=== PATIENT | male | born 1950 | race African-American/Black ===

== ENCOUNTER 2018-05-28 04:42 | Inpatient (IN) | payer BC, OTHER ==
[2018-05-28] VITALS (7 sets, daily range): BP systolic 98–119; BP diastolic 50–70
[~2018-05-28] VITALS: Ht 172.7 cm; Wt 81.6 kg
[2018-05-28] MEDS ORDERED: NITROGLYCERIN OINT 1GM/INCH UDPKT TD ONE (05:00)
[2018-05-28] MEDS ORDERED: FUROSEMIDE 40MG/4ML VIAL IV ONE (05:00)
[2018-05-28] MEDS ORDERED: ONDANSETRON HCL 4MG/2ML INJ IV STA (05:00)
[2018-05-28 05:22] LABS: BASOPHILS % 0.4 % (0.0-2.0); EOSINOPHILS % 2.6 % (0.0-5.0); HEMATOCRIT. 30.2 % (42.0-52.0); HEMOGLOBIN. 9.5 g/dL (14.0-18.0); LYMPHOCYTES % 25.8 % (20.0-50.0); MEAN CORPUSCULAR HEMOGLOBIN 27.4 pg (28.0-32.0); MEAN CORPUSCULAR VOLUME 86.6 fL (80.0-94.0); MEAN PLATELET VOLUME 8.4 fl (7.4-10.4); MONOCYTES % 6.9 % (2.0-8.0); NEUTROPHILS % 64.3 % (40.0-76.0); PLATELET 206 x1000/uL (130-400); RED BLOOD CELL COUNT 3.48 mill/uL (4.7-6.1); RED CELL DISTRIBUTION WIDTH 16.7 % (11.6-14.6)
[2018-05-28 05:28] LABS: CHLORIDE 108 mEq/L (98-107)
[2018-05-28] MEDS ORDERED: CEFTRIAXONE 1 G PREMIX 50 ML IV ONE (06:15)
[2018-05-28] MEDS ORDERED: AZITHROMYCIN 500 MG in DEXT 5% WATER 250 ML IV ONE (06:15)
[2018-05-28] MEDS ORDERED: DOCUSATE SODIUM 100MG CAPSULE PO PRN (09:00)
[2018-05-28] MEDS ORDERED: ACETAMINOPHEN 325MG TABLET PO PRN (09:00)
[2018-05-28] MEDS ORDERED: DEXTROSE 50% WATER 50ML SYRINGE IV PRN ×2 (09:00)
[2018-05-28] MEDS ORDERED: IPRATROPIUM/ALBUTEROL 0.5-3(2.5)MG/3ML NEB INH PRN (09:00)
[2018-05-28] MEDS ORDERED: MAGNESIUM/ALUMINUM HYDROXIDE/SIMETHICONE 30ML UDC PO PRN (09:00)
[2018-05-28] MEDS ORDERED: GUAIFENESIN 200MG/10ML SUGAR FREE UDC PO PRN (09:00)
[2018-05-28] MEDS ORDERED: CLONIDINE 0.1MG TABLET PO PRN (09:00)
[2018-05-28 09:31] LABS: BG BASE EXCESS -2.9 mmol/L (-2.0-2.0); BG BILEVEL POS AIRWAY PRESSURE 18/5; BG CARBOXYHEMOGLOBIN 0.3 % (0.5-1.5); BG DEOXYHEMOGLOBIN 0.7 % (0.0-5.0); BG FRACTION INSPIRED OXYGEN 50; BG HCO3 ACT 20.9 mmol/L (22.0-26.0); BG METHEMOGLOBIN 0.4 % (0.0-1.5); BG OXYGEN SATURATION 99.3 % (92.0-98.5); BG OXYHEMOGLOBIN 98.6 % (94.0-97.0); BG PCO2 32.4 mmHg (35.0-45.0); BG PH 7.427 (7.350-7.450); BG PO2 216.8 mmHg (75.0-100.0); BG SAMPLE SITE RIGHT BRACHIAL; BG TOTAL HEMOGLOBIN 9.2 g/dL (12.0-18.0); BG VENT MODE MASK - BIPAP; BG VENT RATE 12 set
[2018-05-28] MEDS ORDERED: ASPI-1158 MT (12:55)
[2018-05-28] MEDS ORDERED: ATOR-2 MT (12:55)
[2018-05-28] MEDS ORDERED: TICA60TA PO (12:55)
[2018-05-28] MEDS ORDERED: COR3 MT (12:55)
[2018-05-28] MEDS ORDERED: NITR0.4T49 SL (12:55)
[2018-05-28] MEDS: BLOOD SUGAR DIAGNOSTIC STRIP TEST SCH ×3 (12:56→20:35)
[2018-05-28] MEDS: INSULIN LISPRO 100 UNITS/ML SUBCUT SCH ×3 (12:56→20:35)
[2018-05-28] MEDS: TICAGRELOR 90 MG TABLET PO SCH ×2 (13:38→18:52)
[2018-05-28] MEDS: PANTOPRAZOLE SODIUM 40 MG/VIAL IV SCH (13:39)
[2018-05-28] MEDS: ASPIRIN 81MG EC TABLET PO SCH (13:39)
[2018-05-28] MEDS ORDERED: IPRATROPIUM/ALBUTEROL 0.5-3(2.5)MG/3ML NEB HHN PRN (17:00)
[2018-05-28] MEDS: IPRATROPIUM/ALBUTEROL 0.5-3(2.5)MG/3ML NEB HHN SCH (20:22)
[2018-05-28] MEDS: CARVEDILOL 3.125 MG TABLET PO SCH (20:35)
[2018-05-28] MEDS: ATORVASTATIN CALCIUM 20MG TABLET PO SCH (20:36)
[2018-05-29] VITALS (12 sets, daily range): BP systolic 95–123; BP diastolic 54–85
[2018-05-29] MEDS: IPRATROPIUM/ALBUTEROL 0.5-3(2.5)MG/3ML NEB HHN SCH ×3 (01:16→20:07)
[2018-05-29] MEDS: BLOOD SUGAR DIAGNOSTIC STRIP TEST SCH ×4 (07:30→21:16)
[2018-05-29] MEDS: INSULIN LISPRO 100 UNITS/ML SUBCUT SCH ×4 (08:00→21:37)
[2018-05-29 08:31] LABS: BASOPHILS % 0.8 % (0.0-2.0); EOSINOPHILS % 4.1 % (0.0-5.0); HEMATOCRIT. 27.3 % (42.0-52.0); HEMOGLOBIN. 8.7 g/dL (14.0-18.0); LYMPHOCYTES % 25.8 % (20.0-50.0); MEAN CORPUSCULAR HEMOGLOBIN 27.4 pg (28.0-32.0); MEAN PLATELET VOLUME 8.6 fl (7.4-10.4); MONOCYTES % 9.1 % (2.0-8.0); NEUTROPHILS % 60.2 % (40.0-76.0); PLATELET 208 x1000/uL (130-400); RED BLOOD CELL COUNT 3.17 mill/uL (4.7-6.1); RED CELL DISTRIBUTION WIDTH 16.7 % (11.6-14.6)
[2018-05-29] MEDS: TICAGRELOR 90 MG TABLET PO SCH ×2 (08:56→17:07)
[2018-05-29] MEDS: ASPIRIN 81MG EC TABLET PO SCH (08:57)
[2018-05-29] MEDS: FUROSEMIDE 40MG/4ML VIAL IV SCH (08:58)
[2018-05-29] MEDS: PANTOPRAZOLE SODIUM 40 MG/VIAL IV SCH (08:58)
[2018-05-29] MEDS: CARVEDILOL 3.125 MG TABLET PO SCH ×2 (08:58→21:00)
[2018-05-29] MEDS: LOSARTAN POTASSIUM 25 MG TABLET PO SCH (08:58)
[2018-05-29 09:45] LABS: PHOSPHORUS 3.1 mg/dL (2.5-4.9)
[2018-05-29 09:48] LABS: T4 FREE 1.13 ng/dL (0.76-1.46)
[2018-05-29] MEDS: LINAGLIPTIN 5MG TABLET PO SCH ×2 (11:15→13:25)
[2018-05-29] MEDS: ATORVASTATIN CALCIUM 20MG TABLET PO SCH (21:15)
[2018-05-30] VITALS (8 sets, daily range): BP systolic 98–134; BP diastolic 44–80
[2018-05-30] MEDS: IPRATROPIUM/ALBUTEROL 0.5-3(2.5)MG/3ML NEB HHN SCH ×3 (02:15→14:56)
[2018-05-30 07:28] LABS: BASOPHILS % 0.7 % (0.0-2.0); EOSINOPHILS % 5.2 % (0.0-5.0); HEMATOCRIT. 26.6 % (42.0-52.0); HEMOGLOBIN. 8.5 g/dL (14.0-18.0); LYMPHOCYTES % 33.7 % (20.0-50.0); MEAN CORPUSCULAR HEMOGLOBIN 27.5 pg (28.0-32.0); MEAN CORPUSCULAR VOLUME 85.6 fL (80.0-94.0); MEAN PLATELET VOLUME 8.2 fl (7.4-10.4); MONOCYTES % 11.5 % (2.0-8.0); NEUTROPHILS % 48.9 % (40.0-76.0); PLATELET 216 x1000/uL (130-400); RED BLOOD CELL COUNT 3.11 mill/uL (4.7-6.1); RED CELL DISTRIBUTION WIDTH 16.2 % (11.6-14.6)
[2018-05-30] MEDS: BLOOD SUGAR DIAGNOSTIC STRIP TEST SCH ×2 (07:30→12:30)
[2018-05-30] MEDS: INSULIN LISPRO 100 UNITS/ML SUBCUT SCH ×2 (08:00→12:30)
[2018-05-30] MEDS: LINAGLIPTIN 5MG TABLET PO SCH (08:20)
[2018-05-30] MEDS: ASPIRIN 81MG EC TABLET PO SCH (08:20)
[2018-05-30] MEDS: FUROSEMIDE 40MG/4ML VIAL IV SCH (08:20)
[2018-05-30] MEDS: TICAGRELOR 90 MG TABLET PO SCH (08:20)
[2018-05-30] MEDS: LOSARTAN POTASSIUM 25 MG TABLET PO SCH (09:00)
[2018-05-30] MEDS: CARVEDILOL 3.125 MG TABLET PO SCH (09:00)
[2018-05-30] MEDS ORDERED: FAMOTIDINE 20MG/2ML VIAL IV SCH (09:00)
== END 2018-05-30 17:15 | disposition home or self-care (01) | DRG 291 ==
LOC: ER 04:53 → 5EST 06:08 → EDBEDREQSVC 06:12 → EDBEDREQTM 06:12 → EDBEDREQ 06:12 → ENRESERV 09:43
PROVIDERS: ADMIT Family Medicine Adult Medicine; ATTEND Family Medicine Adult Medicine
PROC: 5A09357 Assistance with Respiratory Ventilation, Less than 24 Consecutive Hours, Continuous Positive Airway Pressure (ICD-10-PCS; principal; 2018-05-28)
PROC: 5A09357 Assistance with Respiratory Ventilation, Less than 24 Consecutive Hours, Continuous Positive Airway Pressure (ICD-10-PCS; 2018-05-29)
DX: I13.0 Hypertensive heart and chronic kidney disease with heart failure and stage 1 through stage 4 chronic kidney disease, or unspecified chronic kidney disease (principal); I50.23 Acute on chronic systolic (congestive) heart failure; J96.00 Acute respiratory failure, unspecified whether with hypoxia or hypercapnia; J18.9 Pneumonia, unspecified organism; E87.3 Alkalosis; E11.22 Type 2 diabetes mellitus with diabetic chronic kidney disease; E78.5 Hyperlipidemia, unspecified; D64.9 Anemia, unspecified; N40.0 Benign prostatic hyperplasia without lower urinary tract symptoms; I25.10 Atherosclerotic heart disease of native coronary artery without angina pectoris; I25.2 Old myocardial infarction; I25.5 Ischemic cardiomyopathy; Z79.82 Long term (current) use of aspirin; Z82.49 Family history of ischemic heart disease and other diseases of the circulatory system; Z85.46 Personal history of malignant neoplasm of prostate; Z92.21 Personal history of antineoplastic chemotherapy; Z92.3 Personal history of irradiation; Z95.5 Presence of coronary angioplasty implant and graft; Z83.3 Family history of diabetes mellitus; Z88.8 Allergy status to other drugs, medicaments and biological substances; N18.9 Chronic kidney disease, unspecified
CPT/HCPCS: 36415; 36600; 71045; 76770; 80048; 80061; 82375; 82805; 82962; 83036; 83605; 83735; 83880; 84100; 84145; 84439; 84443; 84484; 93005; 93306; 94640; 96365; 96375; 97162; 97166; 99291; C9113; J0456; J0696; J1815; J1940; J2405; J3490; J7060; J7620; J8499

== ENCOUNTER 2018-08-07 19:07 | Inpatient (IN) | payer BC, MEDICAID ==
[~2018-08-07] VITALS: Ht 175.3 cm; Wt 81.2 kg
[~2018-08-07 19:07] MED LIST: ASPI-1158 MT; ATOR-2 MT; COR3 MT; NITR0.4T49 SL; TICA60TA PO
[2018-08-07 19:40] LABS: CHLORIDE 100 mEq/L (98-107)
[2018-08-07 19:41] LABS: BASOPHILS % 0.3 % (0.0-2.0); EOSINOPHILS % 3.3 % (0.0-5.0); HEMOGLOBIN. 9.4 g/dL (14.0-18.0); MEAN CORPUSCULAR HEMOGLOBIN 28.4 pg (28.0-32.0); MEAN CORPUSCULAR VOLUME 85.1 fL (80.0-94.0); MEAN PLATELET VOLUME 9.7 fl (7.4-10.4); MONOCYTES % 10.5 % (2.0-8.0); NEUTROPHILS % 41.9 % (40.0-76.0); PLATELET 289 x1000/uL (130-400); RED BLOOD CELL COUNT 3.29 mill/uL (4.7-6.1); RED CELL DISTRIBUTION WIDTH 16.2 % (11.6-14.6)
[2018-08-07] MEDS ORDERED: NITROGLYCERIN 0.4MG TABLET SL SL PRN (20:00)
[2018-08-07] MEDS ORDERED: ASPIRIN 81MG TABLET PO ONE (20:00)
[2018-08-07] MEDS ORDERED: FUROSEMIDE 40MG/4ML VIAL IV ONE (20:00)
[2018-08-08] VITALS (7 sets, daily range): BP systolic 96–123; BP diastolic 50–83
[2018-08-08] MEDS: CARVEDILOL 3.125 MG TABLET PO SCH ×2 (08:40→21:53)
[2018-08-08] MEDS: FUROSEMIDE 40MG/4ML VIAL IVP SCH ×2 (08:47→21:50)
[2018-08-08] MEDS ORDERED: ENOXAPARIN 40MG/0.4ML SYR SUBCUT SCH (09:00)
[2018-08-08] MEDS ORDERED: LISINOPRIL 10MG TABLET PO SCH (09:00)
[2018-08-08] MEDS ORDERED: TICAGRELOR 60 MG TABLET PO NR (09:00)
[2018-08-08] MEDS ORDERED: TICAGRELOR 90 MG TABLET PO SCH (09:00)
[2018-08-08] MEDS ORDERED: DEXTROSE 50% WATER 50ML SYRINGE IV PRN (09:15)
[2018-08-08] MEDS ORDERED: PRAS10TA6 PO (10:28)
[2018-08-08] MEDS ORDERED: BUME1TAB5 PO (10:29)
[2018-08-08] MEDS ORDERED: LINA5TAB PO (10:30)
[2018-08-08] MEDS: BLOOD SUGAR DIAGNOSTIC STRIP TEST SCH ×3 (12:42→21:50)
[2018-08-08] MEDS: INSULIN LISPRO 100 UNITS/ML SUBCUT SCH ×3 (12:53→21:00)
[2018-08-08 15:21] LABS: CLARITY URINE CLEAR (CLEAR); COLOR URINE YELLOW (YELLOW); KETONES URINE NEGATIVE (NEGATIVE); LEUKOCYTE ESTERASE URINE NEGATIVE (NEGATIVE); NITRITE URINE NEGATIVE (NEGATIVE); OCCULT BLOOD URINE NEGATIVE (NEGATIVE); PH URINE 6.5 (4.5-8.0); PROTEIN URINE NEGATIVE (NEGATIVE); SPECIFIC GRAVITY URINE 1.013 (1.005-1.030)
[2018-08-08 15:27] LABS: *AMPHETAMINES SCREEN URINE NEGATIVE (NEGATIVE); *BARBITURATES SCREEN URINE NEGATIVE (NEGATIVE); CANNABINOID URINE SCREEN NEGATIVE (NEGATIVE)
[2018-08-08 15:28] LABS: *BENZODIAZEPINES SCREEN URINE NEGATIVE (NEGATIVE); *COCAINE SCREEN URINE NEGATIVE (NEGATIVE); METHADONE URINE SCREEN NEGATIVE (NEGATIVE); OPIATES URINE SCREEN NEGATIVE (NEGATIVE); PHENCYCLIDINE URINE SCREEN NEGATIVE (NEGATIVE)
[2018-08-08] MEDS: IRON SUCROSE COMPLEX 100 MG/5 ML ML IV SCH (17:20)
[2018-08-08] MEDS: ATORVASTATIN CALCIUM 40MG TABLET PO SCH (21:50)
[2018-08-09] VITALS: BP 98/57
[2018-08-09 04:00] VITALS: BP 116/67
[2018-08-09] MEDS: BLOOD SUGAR DIAGNOSTIC STRIP TEST SCH ×4 (06:28→20:23)
[2018-08-09] MEDS: INSULIN LISPRO 100 UNITS/ML SUBCUT SCH ×4 (06:28→20:23)
[2018-08-09 08:00] VITALS: BP 132/72
[2018-08-09] MEDS ORDERED: ASPIRIN 81MG TABLET PO SCH (09:00)
[2018-08-09] MEDS: FUROSEMIDE 40MG/4ML VIAL IVP SCH ×2 (09:01→20:22)
[2018-08-09] MEDS: IRON SUCROSE COMPLEX 100 MG/5 ML ML IV SCH (09:01)
[2018-08-09] MEDS: CARVEDILOL 3.125 MG TABLET PO SCH ×2 (09:02→20:22)
[2018-08-09] MEDS: LISINOPRIL 2.5MG TABLET PO SCH (09:02)
[2018-08-09 12:05] VITALS: BP 95/45
[2018-08-09] MEDS: EFFIENT 10 MG PO SCH (12:09)
[2018-08-09 16:00] VITALS: BP 95/45
[2018-08-09 20:00] VITALS: BP 92/51
[2018-08-09] MEDS: ATORVASTATIN CALCIUM 40MG TABLET PO SCH (20:22)
[2018-08-10] VITALS: BP 110/53
[2018-08-10 04:00] VITALS: BP 105/55
[2018-08-10] MEDS: INSULIN LISPRO 100 UNITS/ML SUBCUT SCH ×4 (06:22→21:00)
[2018-08-10] MEDS: BLOOD SUGAR DIAGNOSTIC STRIP TEST SCH ×4 (06:22→21:00)
[2018-08-10 08:00] VITALS: BP 104/60
[2018-08-10] MEDS: CARVEDILOL 3.125 MG TABLET PO SCH ×2 (08:55→21:00)
[2018-08-10] MEDS: LISINOPRIL 2.5MG TABLET PO SCH (08:56)
[2018-08-10] MEDS: IRON SUCROSE COMPLEX 100 MG/5 ML ML IV SCH (08:56)
[2018-08-10] MEDS: FUROSEMIDE 40MG/4ML VIAL IVP SCH ×2 (08:56→21:00)
[2018-08-10] MEDS: EFFIENT 10 MG PO SCH (08:56)
[2018-08-10 12:00] VITALS: BP 107/59
[2018-08-10 15:26] LABS: BASOPHILS % 0.4 % (0.0-2.0); EOSINOPHILS % 3.3 % (0.0-5.0); HEMATOCRIT. 29.9 % (42.0-52.0); HEMOGLOBIN. 9.8 g/dL (14.0-18.0); LYMPHOCYTES % 30.5 % (20.0-50.0); MEAN CORPUSCULAR HEMOGLOBIN 28.4 pg (28.0-32.0); MEAN CORPUSCULAR VOLUME 86.4 fL (80.0-94.0); MEAN PLATELET VOLUME 8.5 fl (7.4-10.4); MONOCYTES % 11.2 % (2.0-8.0); NEUTROPHILS % 54.6 % (40.0-76.0); PLATELET 196 x1000/uL (130-400); RED BLOOD CELL COUNT 3.47 mill/uL (4.7-6.1)
[2018-08-10 16:00] VITALS: BP 112/61
[2018-08-10] MEDS: ATORVASTATIN CALCIUM 40MG TABLET PO SCH (22:21)
[2018-08-11] VITALS: BP 113/61
[2018-08-11 04:00] VITALS: BP 116/57
[2018-08-11] MEDS: BLOOD SUGAR DIAGNOSTIC STRIP TEST SCH ×4 (06:18→21:19)
[2018-08-11] MEDS: INSULIN LISPRO 100 UNITS/ML SUBCUT SCH ×4 (06:18→21:00)
[2018-08-11 08:00] VITALS: BP 107/66
[2018-08-11] MEDS: EFFIENT 10 MG PO SCH ×2 (09:00→15:20)
[2018-08-11] MEDS: LISINOPRIL 2.5MG TABLET PO SCH (09:00)
[2018-08-11] MEDS: CARVEDILOL 3.125 MG TABLET PO SCH ×3 (09:40→21:29)
[2018-08-11] MEDS: FUROSEMIDE 40MG/4ML VIAL IVP SCH ×2 (09:45→21:29)
[2018-08-11 12:00] VITALS: BP 119/68
[2018-08-11 16:00] VITALS: BP 113/62
[2018-08-11 20:00] VITALS: BP 110/64
[2018-08-11] MEDS: ATORVASTATIN CALCIUM 40MG TABLET PO SCH (21:28)
[2018-08-12] VITALS: BP 103/59
[2018-08-12 04:00] VITALS: BP 111/68
[2018-08-12 05:13] LABS: HIV SCREEN 4G Non Reactive (Non Reactive)
[2018-08-12] MEDS: BLOOD SUGAR DIAGNOSTIC STRIP TEST SCH ×2 (06:45→12:35)
[2018-08-12] MEDS: INSULIN LISPRO 100 UNITS/ML SUBCUT SCH ×2 (07:15→12:15)
[2018-08-12 08:00] VITALS: BP 113/72
[2018-08-12] MEDS: EFFIENT 10 MG PO SCH (08:47)
[2018-08-12] MEDS: FUROSEMIDE 40MG/4ML VIAL IVP SCH (08:47)
[2018-08-12] MEDS: LISINOPRIL 2.5MG TABLET PO SCH (09:00)
[2018-08-12] MEDS: CARVEDILOL 3.125 MG TABLET PO SCH (09:00)
[2018-08-12 11:41] VITALS: BP 113/72
[2018-08-12 12:00] VITALS: BP 100/60
== END 2018-08-12 15:00 | disposition home or self-care (01) | DRG 291 ==
LOC: ER 19:07 → 5WST 20:39 → EDBEDREQTM 20:42 → EDBEDREQ 20:42 → ENRESERV 23:44
PROVIDERS: ADMIT Internal Medicine; ATTEND Internal Medicine
DX: I13.0 Hypertensive heart and chronic kidney disease with heart failure and stage 1 through stage 4 chronic kidney disease, or unspecified chronic kidney disease (principal); I50.23 Acute on chronic systolic (congestive) heart failure; J96.91 Respiratory failure, unspecified with hypoxia; E87.1 Hypo-osmolality and hyponatremia; N18.3 Chronic kidney disease, stage 3 (moderate); E11.22 Type 2 diabetes mellitus with diabetic chronic kidney disease; D64.9 Anemia, unspecified; E78.5 Hyperlipidemia, unspecified; I25.5 Ischemic cardiomyopathy; I25.10 Atherosclerotic heart disease of native coronary artery without angina pectoris; I25.2 Old myocardial infarction; Z85.46 Personal history of malignant neoplasm of prostate; Z95.5 Presence of coronary angioplasty implant and graft; Z79.02 Long term (current) use of antithrombotics/antiplatelets; Z79.4 Long term (current) use of insulin; Z79.899 Other long term (current) drug therapy; Z95.0 Presence of cardiac pacemaker; Z88.8 Allergy status to other drugs, medicaments and biological substances; Z92.21 Personal history of antineoplastic chemotherapy; Z92.3 Personal history of irradiation
CPT/HCPCS: 36415; 71045; 80048; 80305; 82728; 82962; 83540; 83550; 83880; 84484; 86703; 87389; 93005; 96374; 99291; C1893; J1650; J1815; J1940